=== PATIENT | male | born 1950 | race African-American/Black ===

== ENCOUNTER 2020-05-07 23:09 | Inpatient (IN) | payer MEDICARE, OTHER ==
[~2020-05-07] VITALS: Ht 157.5 cm; Wt 49.0 kg
[2020-05-07] MEDS ORDERED: METO50TA16 PO (23:37)
[2020-05-07] MEDS ORDERED: DOCU-141 PO (23:37)
[2020-05-07] MEDS ORDERED: QUET25TA PO (23:37)
[2020-05-07] MEDS ORDERED: THIA100T13 PO (23:37)
[2020-05-07] MEDS ORDERED: MULT-1275 PO (23:37)
[2020-05-07] MEDS ORDERED: AMLO10TA59 PO (23:37)
[2020-05-07] MEDS ORDERED: LISI40TA4 PO (23:37)
[2020-05-07] MEDS ORDERED: FOLI1TAB16 PO (23:37)
[2020-05-07] MEDS ORDERED: LORA1TAB PO (23:37)
[2020-05-07 23:56] LABS: *AMPHETAMINE, URINE NEGATIVE (NEGATIVE); *CANNABINOID, URINE NEGATIVE (NEGATIVE); *COCCAINE, URINE NEGATIVE (NEGATIVE); *PHENCYCLIDINE SCREEN,URINE NEGATIVE (NEGATIVE)
[2020-05-08 00:04] LABS: *OPIATE, URINE NEGATIVE (NEGATIVE)
[2020-05-08 00:14] LABS: ACETAMINOPHEN < 2.0 ug/mL (10-30)
[2020-05-08 00:24] LABS: ETHANOL < 3 MG/DL (0-0)
[2020-05-08] MEDS ORDERED: LORAZEPAM 0.5 MG TABLET PO PRN (02:15)
[2020-05-08] MEDS ORDERED: MAG HYDROX/AL HYDROX/SIMETH 30 ML LIQUID UDC PO PRN (02:15)
[2020-05-08] MEDS ORDERED: ACETAMINOPHEN 325 MG TABLET PO PRN (02:15)
[2020-05-08] MEDS ORDERED: MAGNESIUM HYDROXIDE 30 ML LIQUID UDC PO PRN (02:15)
[2020-05-08 02:16] VITALS: BP 135/72
[2020-05-08 07:30] VITALS: BP 128/84
[2020-05-08] MEDS: NICOTINE 14 MG/24HR PATCH TD SCH (10:21)
[2020-05-08] MEDS: DIVALPROEX SPRINKLE 125 MG CAP.SPRINK PO SCH ×2 (14:18→20:41)
[2020-05-08 15:36] VITALS: BP 150/98
[2020-05-08] MEDS: risperiDONE 0.5 MG TABLET PO SCH (16:52)
[2020-05-08 20:00] VITALS: BP 135/87
[2020-05-08] MEDS: TRAZODONE 50 MG TABLET PO SCH (20:41)
[2020-05-09 07:30] VITALS: BP 164/93
[2020-05-09] MEDS: DIVALPROEX SPRINKLE 125 MG CAP.SPRINK PO SCH ×2 (08:02→20:21)
[2020-05-09] MEDS: risperiDONE 0.5 MG TABLET PO SCH ×2 (08:02→16:34)
[2020-05-09] MEDS: NICOTINE 14 MG/24HR PATCH TD SCH (08:02)
[2020-05-09] MEDS ORDERED: HALOPERIDOL LACTATE 5 MG/1 ML VIAL IM ONE (10:05)
[2020-05-09] MEDS ORDERED: diphenhydrAMINE 50 MG/1 ML VIAL IM ONE (10:05)
[2020-05-09] MEDS ORDERED: LORAZEPAM 0.5 MG TABLET PO PRN (14:15)
[2020-05-09 16:00] VITALS: BP 113/76
[2020-05-09 20:00] VITALS: BP 137/79
[2020-05-09] MEDS: TRAZODONE 50 MG TABLET PO SCH (20:21)
[2020-05-10 07:30] VITALS: BP 166/90
[2020-05-10] MEDS: risperiDONE 0.5 MG TABLET PO SCH ×2 (09:21→16:21)
[2020-05-10] MEDS: NICOTINE 14 MG/24HR PATCH TD SCH (09:21)
[2020-05-10] MEDS: DIVALPROEX SPRINKLE 125 MG CAP.SPRINK PO SCH ×2 (09:21→20:14)
[2020-05-10 15:02] VITALS: BP 121/64
[2020-05-10] MEDS: TRAZODONE 50 MG TABLET PO SCH (20:14)
[2020-05-10 21:05] VITALS: BP 124/66
[2020-05-11 07:30] VITALS: BP 153/102
[2020-05-11] MEDS: NICOTINE 14 MG/24HR PATCH TD SCH (08:04)
[2020-05-11] MEDS: risperiDONE 0.5 MG TABLET PO SCH (08:04)
[2020-05-11] MEDS: DIVALPROEX SPRINKLE 125 MG CAP.SPRINK PO SCH ×2 (08:04→20:23)
[2020-05-11] MEDS ORDERED: risperiDONE 1 MG TABLET PO SCH (09:00)
[2020-05-11] MEDS: risperiDONE 1 MG TABLET PO SCH ×2 (12:43→16:05)
[2020-05-11 16:00] VITALS: BP 117/76
[2020-05-11 20:08] VITALS: BP 150/43
[2020-05-11] MEDS: TRAZODONE 50 MG TABLET PO SCH (20:23)
[2020-05-12 07:30] VITALS: BP 140/95
[2020-05-12] MEDS: DIVALPROEX SPRINKLE 125 MG CAP.SPRINK PO SCH ×2 (08:10→20:19)
[2020-05-12] MEDS: risperiDONE 1 MG TABLET PO SCH ×3 (08:10→17:03)
[2020-05-12] MEDS: NICOTINE 14 MG/24HR PATCH TD SCH (08:11)
[2020-05-12 16:00] VITALS: BP 116/94
[2020-05-12] MEDS: ENSURE ENLIVE (VAN) 240 ML LIQUID PO SCH (17:03)
[2020-05-12] MEDS: TRAZODONE 50 MG TABLET PO SCH (20:19)
[2020-05-12 20:20] VITALS: BP 122/78
[2020-05-13 07:30] VITALS: BP 147/95
[2020-05-13] MEDS: ENSURE ENLIVE (VAN) 240 ML LIQUID PO SCH ×2 (08:00→16:56)
[2020-05-13] MEDS: DIVALPROEX SPRINKLE 125 MG CAP.SPRINK PO SCH ×2 (08:21→20:09)
[2020-05-13] MEDS: risperiDONE 1 MG TABLET PO SCH ×2 (08:21→12:14)
[2020-05-13] MEDS: NICOTINE 14 MG/24HR PATCH TD SCH (08:28)
[2020-05-13] MEDS: LISINOPRIL 20 MG TABLET PO SCH (12:15)
[2020-05-13] MEDS: METOPROLOL TARTRATE 50 MG TABLET PO SCH ×2 (12:17→20:09)
[2020-05-13 16:00] VITALS: BP 119/55
[2020-05-13] MEDS: risperiDONE 2 MG TABLET PO SCH (16:51)
[2020-05-13] MEDS: DOCUSATE SODIUM 100 MG CAPSULE PO SCH (16:51)
[2020-05-13] MEDS ORDERED: risperiDONE 1 MG TABLET PO SCH (17:00)
[2020-05-13 20:00] VITALS: BP 118/76
[2020-05-13] MEDS: TRAZODONE 50 MG TABLET PO SCH (20:09)
[2020-05-14 07:30] VITALS: BP 130/84
[2020-05-14] MEDS: ENSURE ENLIVE (VAN) 240 ML LIQUID PO SCH ×2 (08:00→16:50)
[2020-05-14] MEDS: FOLIC ACID 1 MG TABLET PO SCH (08:44)
[2020-05-14] MEDS: MULTIVITAMINS,THERAPEUTIC TABLET PO SCH (08:44)
[2020-05-14] MEDS: METOPROLOL TARTRATE 50 MG TABLET PO SCH ×2 (08:44→20:29)
[2020-05-14] MEDS: DIVALPROEX SPRINKLE 125 MG CAP.SPRINK PO SCH ×2 (08:45→20:29)
[2020-05-14] MEDS: AMLODIPINE 10 MG TABLET PO SCH (08:45)
[2020-05-14] MEDS: DOCUSATE SODIUM 100 MG CAPSULE PO SCH ×2 (08:45→16:50)
[2020-05-14] MEDS: NICOTINE 14 MG/24HR PATCH TD SCH (08:46)
[2020-05-14] MEDS: risperiDONE 2 MG TABLET PO SCH ×3 (08:46→16:50)
[2020-05-14] MEDS: LISINOPRIL 20 MG TABLET PO SCH (08:46)
[2020-05-14] MEDS ORDERED: Medication Not On Formulary EA (Lisinopril 40 MG) PO SCH (09:00)
[2020-05-14] MEDS ORDERED: Medication Not On Formulary EA (Multivitamin 1 TAB) PO SCH (09:00)
[2020-05-14] MEDS: THIAMINE HCL 100 MG TABLET PO SCH (09:47)
[2020-05-14 16:00] VITALS: BP 102/64
[2020-05-14 20:20] VITALS: BP 126/66
[2020-05-14] MEDS: TRAZODONE 50 MG TABLET PO SCH (20:29)
[2020-05-15 07:30] VITALS: BP 117/70
[2020-05-15] MEDS: DIVALPROEX SPRINKLE 125 MG CAP.SPRINK PO SCH ×2 (08:39→20:16)
[2020-05-15] MEDS: NICOTINE 14 MG/24HR PATCH TD SCH (08:39)
[2020-05-15] MEDS: MULTIVITAMINS,THERAPEUTIC TABLET PO SCH (08:39)
[2020-05-15] MEDS: risperiDONE 2 MG TABLET PO SCH ×3 (08:39→16:08)
[2020-05-15] MEDS: FOLIC ACID 1 MG TABLET PO SCH (08:39)
[2020-05-15] MEDS: DOCUSATE SODIUM 100 MG CAPSULE PO SCH ×2 (08:39→16:08)
[2020-05-15] MEDS: THIAMINE HCL 100 MG TABLET PO SCH (08:39)
[2020-05-15] MEDS: LISINOPRIL 20 MG TABLET PO SCH (08:40)
[2020-05-15] MEDS: METOPROLOL TARTRATE 50 MG TABLET PO SCH ×2 (08:40→20:16)
[2020-05-15] MEDS: AMLODIPINE 10 MG TABLET PO SCH (08:40)
[2020-05-15] MEDS: ENSURE ENLIVE (VAN) 240 ML LIQUID PO SCH ×2 (08:41→16:09)
[2020-05-15 16:32] VITALS: BP 112/62
[2020-05-15 20:04] VITALS: BP 137/69
[2020-05-15] MEDS: TRAZODONE 50 MG TABLET PO SCH (20:15)
[2020-05-16 07:51] VITALS: BP 145/86
[2020-05-16] MEDS: THIAMINE HCL 100 MG TABLET PO SCH (08:16)
[2020-05-16] MEDS: NICOTINE 14 MG/24HR PATCH TD SCH (08:16)
[2020-05-16] MEDS: MULTIVITAMINS,THERAPEUTIC TABLET PO SCH (08:16)
[2020-05-16] MEDS: DIVALPROEX SPRINKLE 125 MG CAP.SPRINK PO SCH ×2 (08:16→20:35)
[2020-05-16] MEDS: DOCUSATE SODIUM 100 MG CAPSULE PO SCH ×2 (08:16→16:36)
[2020-05-16] MEDS: risperiDONE 2 MG TABLET PO SCH ×3 (08:16→16:36)
[2020-05-16] MEDS: FOLIC ACID 1 MG TABLET PO SCH (08:16)
[2020-05-16] MEDS: LISINOPRIL 20 MG TABLET PO SCH (08:17)
[2020-05-16] MEDS: METOPROLOL TARTRATE 50 MG TABLET PO SCH ×2 (08:17→20:36)
[2020-05-16] MEDS: AMLODIPINE 10 MG TABLET PO SCH (08:17)
[2020-05-16] MEDS: ENSURE ENLIVE (VAN) 240 ML LIQUID PO SCH ×2 (08:18→16:36)
[2020-05-16 16:26] VITALS: BP 136/79
[2020-05-16 20:20] VITALS: BP 103/61
[2020-05-16] MEDS: TRAZODONE 50 MG TABLET PO SCH (20:37)
[2020-05-17] MEDS: ZOLPIDEM 5 MG TABLET PO PRN (01:44)
[2020-05-17 07:30] VITALS: BP 133/85
[2020-05-17] MEDS: DOCUSATE SODIUM 100 MG CAPSULE PO SCH ×2 (08:15→16:23)
[2020-05-17] MEDS: risperiDONE 2 MG TABLET PO SCH ×3 (08:15→16:23)
[2020-05-17] MEDS: FOLIC ACID 1 MG TABLET PO SCH (08:15)
[2020-05-17] MEDS: MULTIVITAMINS,THERAPEUTIC TABLET PO SCH (08:15)
[2020-05-17] MEDS: NICOTINE 14 MG/24HR PATCH TD SCH (08:15)
[2020-05-17] MEDS: DIVALPROEX SPRINKLE 125 MG CAP.SPRINK PO SCH ×2 (08:15→20:21)
[2020-05-17] MEDS: ENSURE ENLIVE (VAN) 240 ML LIQUID PO SCH ×2 (08:16→16:23)
[2020-05-17] MEDS: THIAMINE HCL 100 MG TABLET PO SCH (08:16)
[2020-05-17] MEDS: LISINOPRIL 20 MG TABLET PO SCH (08:48)
[2020-05-17] MEDS: AMLODIPINE 10 MG TABLET PO SCH (08:48)
[2020-05-17] MEDS: METOPROLOL TARTRATE 50 MG TABLET PO SCH ×2 (08:49→20:22)
[2020-05-17 16:00] VITALS: BP 141/74
[2020-05-17] MEDS: TRAZODONE 50 MG TABLET PO SCH (20:20)
[2020-05-17 20:21] VITALS: BP 136/68
[2020-05-18 07:30] VITALS: BP 121/69
[2020-05-18] MEDS: MULTIVITAMINS,THERAPEUTIC TABLET PO SCH (08:26)
[2020-05-18] MEDS: THIAMINE HCL 100 MG TABLET PO SCH (08:27)
[2020-05-18] MEDS: FOLIC ACID 1 MG TABLET PO SCH (08:27)
[2020-05-18] MEDS: DIVALPROEX SPRINKLE 125 MG CAP.SPRINK PO SCH ×2 (08:27→20:51)
[2020-05-18] MEDS: DOCUSATE SODIUM 100 MG CAPSULE PO SCH ×2 (08:27→16:33)
[2020-05-18] MEDS: risperiDONE 2 MG TABLET PO SCH ×3 (08:27→16:33)
[2020-05-18] MEDS: AMLODIPINE 10 MG TABLET PO SCH (08:28)
[2020-05-18] MEDS: METOPROLOL TARTRATE 50 MG TABLET PO SCH ×2 (08:28→20:52)
[2020-05-18] MEDS: NICOTINE 14 MG/24HR PATCH TD SCH (08:28)
[2020-05-18] MEDS: LISINOPRIL 20 MG TABLET PO SCH (08:28)
[2020-05-18] MEDS: ENSURE ENLIVE (VAN) 240 ML LIQUID PO SCH ×2 (08:29→16:34)
[2020-05-18 16:34] VITALS: BP 124/82
[2020-05-18 20:03] VITALS: BP 119/65
[2020-05-18] MEDS ORDERED: TRAZODONE 50 MG TABLET PO SCH (21:00)
[2020-05-19] MEDS: ZOLPIDEM 5 MG TABLET PO PRN (01:32)
[2020-05-19 07:30] VITALS: BP 134/86
[2020-05-19] MEDS: NICOTINE 14 MG/24HR PATCH TD SCH (08:01)
[2020-05-19] MEDS: risperiDONE 2 MG TABLET PO SCH (08:01)
[2020-05-19] MEDS: THIAMINE HCL 100 MG TABLET PO SCH (08:01)
[2020-05-19] MEDS: FOLIC ACID 1 MG TABLET PO SCH (08:01)
[2020-05-19] MEDS: DIVALPROEX SPRINKLE 125 MG CAP.SPRINK PO SCH (08:01)
[2020-05-19] MEDS: DOCUSATE SODIUM 100 MG CAPSULE PO SCH (08:01)
[2020-05-19] MEDS: METOPROLOL TARTRATE 50 MG TABLET PO SCH (08:01)
[2020-05-19] MEDS: MULTIVITAMINS,THERAPEUTIC TABLET PO SCH (08:01)
[2020-05-19 08:02] VITALS: BP 134/86
[2020-05-19] MEDS: LISINOPRIL 20 MG TABLET PO SCH (08:02)
[2020-05-19] MEDS: AMLODIPINE 10 MG TABLET PO SCH (08:02)
[2020-05-19] MEDS: ENSURE ENLIVE (VAN) 240 ML LIQUID PO SCH (08:02)
== END 2020-05-19 12:36 | DRG 885 ==
LOC: ER 23:09 → GPS 05-08 01:19
PROVIDERS: ADMIT Psychiatry & Neurology Psychiatry; ATTEND Family Medicine
PROC: 0HBRXZZ Excision of Toe Nail, External Approach (ICD-10-PCS; principal; 2020-05-18)
DX: F29 Unspecified psychosis not due to a substance or known physiological condition (principal); G93.40 Encephalopathy, unspecified; E78.5 Hyperlipidemia, unspecified; I10 Essential (primary) hypertension; J44.9 Chronic obstructive pulmonary disease, unspecified; R26.2 Difficulty in walking, not elsewhere classified; M20.42 Other hammer toe(s) (acquired), left foot; M20.41 Other hammer toe(s) (acquired), right foot; F20.0 Paranoid schizophrenia; Z86.73 Personal history of transient ischemic attack (TIA), and cerebral infarction without residual deficits; Z73.6 Limitation of activities due to disability; F03.90 Unspecified dementia, unspecified severity, without behavioral disturbance, psychotic disturbance, mood disturbance, and anxiety; L60.3 Nail dystrophy
CPT/HCPCS: 36415; A4663; G0480; J1200; J1630